=== PATIENT | male | born 1980 | race Caucasian/White ===

== ENCOUNTER → 2020-10-19 | Emergency (ER) | payer MEDICAID ==
[~2020-10-19] VITALS: Ht 182.9 cm; Wt 63.0 kg
[2020-10-19 11:32] VITALS: BP 117/77
== END | disposition left against medical advice (07) ==
LOC: ER 10:41
DX: R22.2 Localized swelling, mass and lump, trunk (principal); Z53.21 Procedure and treatment not carried out due to patient leaving prior to being seen by health care provider

== ENCOUNTER 2020-12-04 14:19 | Emergency (ER) | payer MEDICAID ==
[~2020-12-04] VITALS: Ht 182.9 cm; Wt 68.2 kg
[2020-12-04 14:22] VITALS: BP 117/81
== END 2020-12-04 15:25 | disposition left against medical advice (07) ==
LOC: ER 14:20
DX: K13.79 Other lesions of oral mucosa (principal); Z53.21 Procedure and treatment not carried out due to patient leaving prior to being seen by health care provider

== ENCOUNTER 2021-06-21 18:40 | Emergency (ER) | payer MEDICAID ==
[~2021-06-21] VITALS: Ht 182.9 cm; Wt 68.0 kg
[2021-06-21] MEDS ORDERED: predniSONE 20 mg tablet PO ONE (21:30)
[2021-06-21] MEDS ORDERED: amox tr/potassium clavulanate 875/125mg TAB PO ONE (22:30)
[2021-06-21] MEDS ORDERED: ondansetron 4mg rapidly disintigrating tab PO ONE (22:30)
[2021-06-21] MEDS ORDERED: oxyCODONE IR 5mg (immed. release) tablet PO ONE (22:30)
[2021-06-21] MEDS ORDERED: ACET-1059 PO ×2 (22:32→22:43)
[2021-06-21] MEDS ORDERED: AMOX-117 PO (22:43)
[2021-06-21 22:53] VITALS: BP 127/78
== END 2021-06-21 22:54 | disposition home or self-care (01) ==
LOC: ER 18:41
DX: T81.89XA Other complications of procedures, not elsewhere classified, initial encounter (principal); Z56.0 Unemployment, unspecified; F12.10 Cannabis abuse, uncomplicated; Z88.8 Allergy status to other drugs, medicaments and biological substances; Z88.6 Allergy status to analgesic agent
CPT/HCPCS: 99284